=== PATIENT | male | born 1970 | race African-American/Black ===

== ENCOUNTER 2018-06-20 14:14 | Inpatient (IN) | payer MEDICAID ==
[~2018-06-20] VITALS: Ht 172.7 cm; Wt 85.7 kg
[~2018-06-20 14:14] MED LIST: ATOR-2 MT; METF500T6 MT; OMEG-119 MT; ONDA8TAB13 MT
[2018-06-20 16:09] LABS: HEMATOCRIT. 27.2 % (42.0-52.0); HEMOGLOBIN. 8.9 g/dL (14.0-18.0); MEAN CORPUSCULAR HEMOGLOBIN 24.7 pg (28.0-32.0); MEAN CORPUSCULAR VOLUME 75.8 fL (80.0-94.0); MEAN PLATELET VOLUME 8.1 fl (7.4-10.4); PLATELET 885 x1000/uL (130-400); RED BLOOD CELL COUNT 3.59 mill/uL (4.7-6.1); RED CELL DISTRIBUTION WIDTH 16.9 % (11.6-14.6)
[2018-06-20 16:11] LABS: CHLORIDE 101 mEq/L (98-107)
[2018-06-20 16:13] LABS: INR 1.1; PROTHROMBIN TIME 10.7 sec (9.1-11.1)
[2018-06-20 16:21] LABS: PHOSPHORUS 4.4 mg/dL (2.5-4.9)
[2018-06-20] MEDS ORDERED: PIPERACILLIN/TAZ 3.375G PREMIX 50 ML IV SCH (16:30)
[2018-06-20] MEDS ORDERED: METRONIDAZOLE 500 MG PREMIX 100 ML IV NR (16:30)
[2018-06-20] MEDS ORDERED: VANCOMYCIN 1 G PREMIX 200 ML IV SCH ×2 (16:30→22:30)
[2018-06-20] MEDS ORDERED: PIPERACILLIN/TAZOBACTAM 3.375GM/50ML PREMIX IV ONE (16:30)
[2018-06-20 16:32] LABS: PLATELET ESTIMATE INCREASED
[2018-06-20] MEDS ORDERED: SODIUM BICARBONATE IV SCH (17:45)
[2018-06-20] MEDS ORDERED: SODIUM CHLORIDE 0.45% IV SCH (17:45)
[2018-06-20] MEDS ORDERED: SODIUM CHLORIDE 0.9% 500 ML IV ONE (19:00)
[2018-06-20] MEDS ORDERED: LIDOCAINE HCL 1% 10 MG/ML 10ML VIAL ONE (19:26)
[2018-06-20] MEDS ORDERED: SODIUM BICARBONATE 4% (2.4MEQ) 5ML VIAL IV ONE (19:27)
[2018-06-20] MEDS ORDERED: HEPARIN 1000 UNITS/ML 10ML ONE (19:27)
[2018-06-20] MEDS ORDERED: NOREPINEPHRINE 4 MG in DEXT 5% WATER 246 ML IV ONE (19:30)
[2018-06-20] MEDS ORDERED: NOREPINEPHRINE 4 MG in DEXT 5% WATER 246 ML IV NR (20:45)
[2018-06-20 21:35] VITALS: BP 101/60
[2018-06-20 21:44] VITALS: BP 108/60
[2018-06-20 22:00] VITALS: BP 120/72
[2018-06-20 22:15] VITALS: BP 119/80
[2018-06-20 22:30] VITALS: BP 114/76
[2018-06-20] MEDS ORDERED: DIPHENHYDRAMINE 50MG/ML VIAL IV PRN (22:30)
[2018-06-20] MEDS ORDERED: IPRATROPIUM/ALBUTEROL 0.5-3(2.5)MG/3ML NEB INH PRN (22:30)
[2018-06-20] MEDS ORDERED: TEMAZEPAM 15MG CAPSULE PO PRN (22:30)
[2018-06-20] MEDS ORDERED: ONDANSETRON HCL 4MG/2ML INJ IV PRN (22:30)
[2018-06-20 23:00] VITALS: BP 128/62
[2018-06-20] MEDS ORDERED: SODIUM BICARBONATE 100 MEQ in SODIUM CHLORIDE 0.45% 1,000 ML IV SCH (23:00)
[2018-06-20] MEDS ORDERED: SODIUM BICARBONATE 100 MEQ in DEXTROSE 5% WATER 1,000 ML IV SCH (23:30)
[2018-06-20] MEDS: ENOXAPARIN 30MG/0.3ML SYR SUBCUT SCH (23:30)
[2018-06-21] VITALS (46 sets, daily range): BP systolic 85–120; BP diastolic 42–75
[2018-06-21] MEDS: PIPERACILLIN/TAZ 2.25G PREMIX 50 ML IV SCH ×2 (00:59→05:37)
[2018-06-21] MEDS ORDERED: VANCOMYCIN 750 MG PREMIX 150 ML IV NR (01:00)
[2018-06-21] MEDS ORDERED: MAGN400T26 MT (04:55)
[2018-06-21] MEDS ORDERED: VIT1TABL86 MT (04:55)
[2018-06-21] MEDS ORDERED: CELE200C MT (04:55)
[2018-06-21] MEDS ORDERED: FOLI0.4T2 MT (04:55)
[2018-06-21 06:54] LABS: HEMATOCRIT. 24.1 % (42.0-52.0); HEMOGLOBIN. 7.6 g/dL (14.0-18.0); MEAN CORPUSCULAR HEMOGLOBIN 23.9 pg (28.0-32.0); MEAN CORPUSCULAR VOLUME 75.7 fL (80.0-94.0); MEAN PLATELET VOLUME 8.3 fl (7.4-10.4); PLATELET 722 x1000/uL (130-400); RED BLOOD CELL COUNT 3.18 mill/uL (4.7-6.1); RED CELL DISTRIBUTION WIDTH 17.2 % (11.6-14.6)
[2018-06-21 07:02] LABS: PHOSPHORUS 3.8 mg/dL (2.5-4.9)
[2018-06-21] MEDS: DEXT 5%/0.45% NACL 1000ML 1,000 ML IV SCH ×2 (08:16→21:11)
[2018-06-21] MEDS: PANTOPRAZOLE SODIUM 40 MG/VIAL IV SCH (08:16)
[2018-06-21 08:31] LABS: BG BASE EXCESS -11.9 mmol/L (-2.0-2.0); BG CARBOXYHEMOGLOBIN 0.3 % (0.5-1.5); BG DEOXYHEMOGLOBIN 4.6 % (0.0-5.0); BG HCO3 ACT 12.6 mmol/L (22.0-26.0); BG METHEMOGLOBIN 0.1 % (0.0-1.5); BG OXYGEN SATURATION 95.4 % (92.0-98.5); BG PCO2 24.1 mmHg (35.0-45.0); BG PH 7.337 (7.350-7.450); BG PO2 82.2 mmHg (75.0-100.0); BG SAMPLE SITE RIGHT RADIAL; BG TOTAL HEMOGLOBIN 8.3 g/dL (12.0-18.0); BG VENT MODE ROOM AIR
[2018-06-21 11:01] LABS: HEPATITIS B SURFACE ANTIGEN NEGATIVE
[2018-06-21 11:28] LABS: HEPATITIS B CORE AB IGM NEGATIVE
[2018-06-21 11:29] LABS: HEPATITIS A AB IGM NEGATIVE (NEGATIVE)
[2018-06-21] MEDS ORDERED: HEPARIN SODIUM 1,000 UNIT/1ML VIAL IV NR (12:22)
[2018-06-21] MEDS: METRONIDAZOLE 500MG TABLET PO SCH ×2 (13:53→17:40)
[2018-06-21 14:15] LABS: PLATELET ESTIMATE INCREASED
[2018-06-21] MEDS: ENOXAPARIN 30MG/0.3ML SYR SUBCUT SCH (21:11)
[2018-06-21] MEDS: HYDROCODONE/ACETAMINOPHEN 5/325MG TABLET PO PRN (21:11)
[2018-06-22] VITALS (16 sets, daily range): BP systolic 91–116; BP diastolic 42–72
[2018-06-22] MEDS: METRONIDAZOLE 500MG TABLET PO SCH ×3 (00:45→11:29)
[2018-06-22 05:56] LABS: HEMATOCRIT. 28.6 % (42.0-52.0); HEMOGLOBIN. 9.3 g/dL (14.0-18.0); MEAN CORPUSCULAR HEMOGLOBIN 24.6 pg (28.0-32.0); MEAN CORPUSCULAR VOLUME 76.2 fL (80.0-94.0); PLATELET 574 x1000/uL (130-400); RED BLOOD CELL COUNT 3.76 mill/uL (4.7-6.1); RED CELL DISTRIBUTION WIDTH 17.5 % (11.6-14.6)
[2018-06-22] MEDS: HYDROCODONE/ACETAMINOPHEN 5/325MG TABLET PO PRN ×2 (06:18→16:11)
[2018-06-22] MEDS: CEFTAZIDIME PENTAHYDRATE 1 G in DEXTROSE 5% WATER 50 ML IV SCH ×2 (08:13→15:57)
[2018-06-22] MEDS: PANTOPRAZOLE SODIUM 40 MG/VIAL IV SCH (08:14)
[2018-06-22] MEDS: DEXT 5%/0.45% NACL 1000ML 1,000 ML IV SCH ×2 (09:08→21:12)
[2018-06-22] MEDS ORDERED: VANCOMYCIN 1250MG in DEXTROSE 5% WATER 250ML IV NR (10:00)
[2018-06-22 14:16] LABS: PLATELET ESTIMATE INCREASED
[2018-06-22] MEDS: METRONIDAZOLE 250MG TABLET PO SCH (17:45)
[2018-06-22] MEDS ORDERED: METRONIDAZOLE 250MG TABLET PO SCH (18:00)
[2018-06-22] MEDS: ENOXAPARIN 30MG/0.3ML SYR SUBCUT SCH (21:06)
[2018-06-23] VITALS (12 sets, daily range): BP systolic 85–131; BP diastolic 43–75
[2018-06-23] MEDS: HYDROCODONE/ACETAMINOPHEN 5/325MG TABLET PO PRN ×2 (00:14→12:27)
[2018-06-23] MEDS: METRONIDAZOLE 250MG TABLET PO SCH ×3 (00:14→12:37)
[2018-06-23 06:23] LABS: BASOPHILS % 0.2 % (0.0-2.0); EOSINOPHILS % 0.5 % (0.0-5.0); HEMATOCRIT. 26.6 % (42.0-52.0); HEMOGLOBIN. 8.7 g/dL (14.0-18.0); LYMPHOCYTES % 8.1 % (20.0-50.0); MEAN CORPUSCULAR HEMOGLOBIN 25.1 pg (28.0-32.0); MEAN CORPUSCULAR VOLUME 76.7 fL (80.0-94.0); MEAN PLATELET VOLUME 7.8 fl (7.4-10.4); MONOCYTES % 13.4 % (2.0-8.0); NEUTROPHILS % 77.8 % (40.0-76.0); PLATELET 532 x1000/uL (130-400); RED BLOOD CELL COUNT 3.46 mill/uL (4.7-6.1); RED CELL DISTRIBUTION WIDTH 17.7 % (11.6-14.6)
[2018-06-23] MEDS ORDERED: HEPARIN SODIUM 1,000 UNIT/1ML VIAL IV SCH (09:00)
[2018-06-23] MEDS: PANTOPRAZOLE SODIUM 40 MG/VIAL IV SCH (09:00)
[2018-06-23] MEDS: DEXT 5%/0.45% NACL 1000ML 1,000 ML IV SCH (12:42)
[2018-06-23] MEDS: ACETAMINOPHEN 325MG TABLET PO PRN ×2 (14:12→21:30)
[2018-06-23] MEDS: CEFTAZIDIME PENTAHYDRATE 1 G in DEXTROSE 5% WATER 50 ML IV SCH (15:36)
[2018-06-23] MEDS: SODIUM CHLORIDE 0.9% 500 ML IV NR ×2 (16:22→16:32)
[2018-06-23] MEDS: ENOXAPARIN 30MG/0.3ML SYR SUBCUT SCH (21:31)
[2018-06-24] MEDS: DEXT 5%/0.45% NACL 1000ML 1,000 ML IV SCH (02:58)
[2018-06-24 04:00] VITALS: BP 131/68
[2018-06-24 06:00] VITALS: BP 127/64
[2018-06-24 08:00] VITALS: BP 127/65
[2018-06-24] MEDS ORDERED: FAMOTIDINE 20MG TABLET PO SCH (09:00)
[2018-06-24 12:00] VITALS: BP 137/70
[2018-06-24] MEDS: HYDROCODONE/ACETAMINOPHEN 5/325MG TABLET PO PRN (15:50)
[2018-06-24 16:00] VITALS: BP 111/57
[2018-06-24 16:06] VITALS: BP 127/65
== END 2018-06-24 16:45 | disposition home or self-care (01) | DRG 469 ==
LOC: ER 15:46 → MICUSO 18:55 → EDBEDREQTM 18:56 → EDBEDREQ 18:56 → EDBEDREQSVC 18:56 → EDBEDREQTM 19:23 → EDBEDREQSVC 19:23 → ENRESERV 19:59 → 8WST 06-22 11:58
PROVIDERS: ADMIT Internal Medicine; ATTEND Internal Medicine
PROC: 05HM33Z Insertion of Infusion Device into Right Internal Jugular Vein, Percutaneous Approach (ICD-10-PCS; principal; 2018-06-20)
PROC: B543ZZA Ultrasonography of Right Jugular Veins, Guidance (ICD-10-PCS; 2018-06-20)
PROC: 5A1D70Z Performance of Urinary Filtration, Intermittent, Less than 6 Hours Per Day (ICD-10-PCS; 2018-06-21)
PROC: 30233N1 Transfusion of Nonautologous Red Blood Cells into Peripheral Vein, Percutaneous Approach (ICD-10-PCS; 2018-06-21)
PROC: 5A1D70Z Performance of Urinary Filtration, Intermittent, Less than 6 Hours Per Day (ICD-10-PCS; 2018-06-22)
DX: N17.9 Acute kidney failure, unspecified (principal); E43 Unspecified severe protein-calorie malnutrition; E87.2 Acidosis; I95.9 Hypotension, unspecified; E87.1 Hypo-osmolality and hyponatremia; K50.90 Crohn's disease, unspecified, without complications; R65.10 Systemic inflammatory response syndrome (SIRS) of non-infectious origin without acute organ dysfunction; K52.9 Noninfective gastroenteritis and colitis, unspecified; I10 Essential (primary) hypertension; E79.0 Hyperuricemia without signs of inflammatory arthritis and tophaceous disease; T45.1X5A Adverse effect of antineoplastic and immunosuppressive drugs, initial encounter; C64.9 Malignant neoplasm of unspecified kidney, except renal pelvis; D64.9 Anemia, unspecified; E11.9 Type 2 diabetes mellitus without complications; Z79.899 Other long term (current) drug therapy; Z99.2 Dependence on renal dialysis; Z68.28 Body mass index [BMI] 28.0-28.9, adult; Y92.89 Other specified places as the place of occurrence of the external cause
CPT/HCPCS: 36415; 36430; 36556; 36600; 71045; 74176; 76770; 76937; 80048; 80053; 80202; 82375; 82550; 82805; 83605; 83735; 84100; 84550; 85025; 85610; 86705; 86709; 86803; 86850; 86900; 86920; 87040; 87340; 87493; 93005; 93970; 96365; 96366; 96367; 96368; 99291; C1752; C9113; J0713; J1200; J1644; J1650; J2543; J3370; J3490; J7030; J7040; J7050; J7060; J7070; P9016

== ENCOUNTER 2019-05-15 09:41 | Inpatient (IN) | payer MEDICAID, OTHER ==
[~2019-05-15] VITALS: Ht 175.3 cm; Wt 75.7 kg
[~2019-05-15 09:41] MED LIST changes: +CELE200C MT; +FOLI0.4T2 MT; +MAGN400T26 MT; +METF-414 MT; -METF500T6 MT; +VIT1TABL86 MT
[2019-05-15] MEDS ORDERED: SODIUM CHLORIDE 0.9% 1,000 ML IV ONE (09:51)
[2019-05-15 10:40] LABS: CHLORIDE 117 mEq/L (98-107)
[2019-05-15 11:01] LABS: BASOPHILS % 0.4 % (0.0-2.0); EOSINOPHILS % 0.7 % (0.0-5.0); MEAN CORPUSCULAR VOLUME 75.8 fL (80.0-94.0); MEAN PLATELET VOLUME 7.5 fl (7.4-10.4); MONOCYTES % 12.1 % (2.0-8.0); NEUTROPHILS % 70.8 % (40.0-76.0); PLATELET 318 x1000/uL (130-400); RED BLOOD CELL COUNT 2.17 mill/uL (4.7-6.1); RED CELL DISTRIBUTION WIDTH 15.1 % (11.6-14.6)
[2019-05-15 11:10] LABS: INR 1.4; PROTHROMBIN TIME 14.5 sec (9.6-11.0)
[2019-05-15 11:16] LABS: HEMOGLOBIN. 5.2 g/dL (14.0-18.0)
[2019-05-15 11:17] LABS: HEMATOCRIT. 16.5 % (42.0-52.0)
[2019-05-15 12:31] LABS: CHLORIDE 103 mEq/L (98-107)
[2019-05-15] MEDS ORDERED: CALCIUM GLUCONATE 100MG/ML 10ML VIAL IV ONE (12:45)
[2019-05-15] MEDS ORDERED: METHYLPREDNISOLONE SOD SUCC 125 MG/2 ML VIAL IV SCH (13:00)
[2019-05-15] MEDS ORDERED: METHYLPREDNISOLONE SOD SUCC 125 MG/2 ML VIAL IV ONE (13:15)
[2019-05-15] MEDS: SODIUM CHLORIDE 0.9% 1,000 ML IV SCH ×2 (14:03→17:08)
[2019-05-15] MEDS ORDERED: CEFTRIAXONE 1 G PREMIX 50 ML IV SCH (14:15)
[2019-05-15] MEDS ORDERED: AZITHROMYCIN 500 MG TABLET PO NR (14:15)
[2019-05-15] MEDS: PANTOPRAZOLE 40MG DR TABLET PO SCH (14:40)
[2019-05-15 14:51] LABS: HAPTOGLOBIN 408 mg/dL (30-200)
[2019-05-15 15:15] VITALS: BP 113/78
[2019-05-15 15:20] VITALS: BP 113/78
[2019-05-15] MEDS ORDERED: ONDANSETRON HCL 4MG/2ML INJ IV PRN (17:30)
[2019-05-15] MEDS ORDERED: DOCUSATE SODIUM 100MG CAPSULE PO PRN (17:30)
[2019-05-15] MEDS ORDERED: IPRATROPIUM/ALBUTEROL 0.5-3(2.5)MG/3ML NEB INH PRN (17:30)
[2019-05-15] MEDS ORDERED: LORAZEPAM 0.5MG TABLET PO PRN (17:30)
[2019-05-15] MEDS ORDERED: HYDROCODONE/ACETAMINOPHEN 10/325MG TABLET PO PRN (17:30)
[2019-05-15] MEDS ORDERED: ACETAMINOPHEN 325MG TABLET PO PRN (17:30)
[2019-05-15] MEDS ORDERED: CLONIDINE 0.1MG TABLET PO PRN (17:30)
[2019-05-15 19:59] LABS: HEMATOCRIT 25.7 % (42.0-52.0); HEMOGLOBIN 8.2 g/dL (14.0-18.0)
[2019-05-15 20:22] VITALS: BP 103/69
[2019-05-15] MEDS ORDERED: ATORVASTATIN CALCIUM 40MG TABLET PO SCH (21:00)
[2019-05-15] MEDS: MORPHINE SULFATE 2 MG/ML CPJ (NOT FOR IM USE) IV PRN (21:04)
[2019-05-16] VITALS (9 sets, daily range): BP systolic 115–136; BP diastolic 72–87
[2019-05-16] MEDS: SODIUM CHLORIDE 0.9% 1,000 ML IV SCH ×2 (04:06→17:33)
[2019-05-16] MEDS: PANTOPRAZOLE 40MG DR TABLET PO SCH (06:29)
[2019-05-16 07:03] LABS: BASOPHILS % 0.3 % (0.0-2.0); HEMATOCRIT. 23.1 % (42.0-52.0); HEMOGLOBIN. 7.3 g/dL (14.0-18.0); LYMPHOCYTES % 10.1 % (20.0-50.0); MEAN CORPUSCULAR HEMOGLOBIN 23.9 pg (28.0-32.0); MEAN CORPUSCULAR VOLUME 75.1 fL (80.0-94.0); MEAN PLATELET VOLUME 7.7 fl (7.4-10.4); MONOCYTES % 12.7 % (2.0-8.0); NEUTROPHILS % 76.9 % (40.0-76.0); PLATELET 418 x1000/uL (130-400); RED BLOOD CELL COUNT 3.07 mill/uL (4.7-6.1); RED CELL DISTRIBUTION WIDTH 15.5 % (11.6-14.6)
[2019-05-16 07:07] LABS: CHLORIDE 106 mEq/L (98-107)
[2019-05-16] MEDS ORDERED: AZITHROMYCIN 500 MG TABLET PO SCH (09:00)
[2019-05-16] MEDS ORDERED: METHYLPREDNISOLONE SOD SUCC 125 MG/2 ML VIAL IV SCH (09:00)
[2019-05-16] MEDS: MAGNESIUM OXIDE 400MG TABLET PO SCH (09:03)
[2019-05-16] MEDS ORDERED: CEFTRIAXONE 1 G PREMIX 50 ML IV SCH (15:00)
[2019-05-16 15:52] LABS: TOTAL IRON BINDING CAPACITY 105 ug/dL (250-450)
[2019-05-16] MEDS: PREDNISONE 20MG TABLET PO SCH (17:32)
[2019-05-16] MEDS: MORPHINE SULFATE 2 MG/ML CPJ (NOT FOR IM USE) IV PRN (17:33)
[2019-05-16 23:26] LABS: CLARITY URINE CLEAR (CLEAR); COLOR URINE YELLOW (YELLOW); KETONES URINE NEGATIVE (NEGATIVE); LEUKOCYTE ESTERASE URINE NEGATIVE (NEGATIVE); NITRITE URINE NEGATIVE (NEGATIVE); OCCULT BLOOD URINE NEGATIVE (NEGATIVE); PROTEIN URINE 1+ (NEGATIVE); SPECIFIC GRAVITY URINE 1.022 (1.005-1.030)
[2019-05-17] VITALS: BP 130/75
[2019-05-17] MEDS: MORPHINE SULFATE 2 MG/ML CPJ (NOT FOR IM USE) IV PRN (01:41)
[2019-05-17 04:00] VITALS: BP 148/70
[2019-05-17] MEDS: SODIUM CHLORIDE 0.9% 1,000 ML IV SCH ×2 (05:13→15:25)
[2019-05-17] MEDS: PANTOPRAZOLE 40MG DR TABLET PO SCH (06:30)
[2019-05-17 07:15] LABS: CHLORIDE 107 mEq/L (98-107)
[2019-05-17] MEDS: MAGNESIUM OXIDE 400MG TABLET PO SCH (10:17)
[2019-05-17] MEDS: PREDNISONE 20MG TABLET PO SCH (10:18)
[2019-05-17] MEDS ORDERED: P20 PO (10:44)
[2019-05-17 10:48] LABS: BASOPHILS % 0.3 % (0.0-2.0); HEMATOCRIT. 28.2 % (42.0-52.0); HEMOGLOBIN. 9.1 g/dL (14.0-18.0); LYMPHOCYTES % 7.6 % (20.0-50.0); MEAN CORPUSCULAR HEMOGLOBIN 25.1 pg (28.0-32.0); MEAN CORPUSCULAR VOLUME 77.6 fL (80.0-94.0); MEAN PLATELET VOLUME 7.9 fl (7.4-10.4); MONOCYTES % 9.2 % (2.0-8.0); NEUTROPHILS % 82.9 % (40.0-76.0); PLATELET 427 x1000/uL (130-400); RED BLOOD CELL COUNT 3.63 mill/uL (4.7-6.1)
[2019-05-17 11:55] LABS: HEMATOCRIT 26.1 % (42.0-52.0); HEMOGLOBIN 8.3 g/dL (14.0-18.0); MEAN CORPUSCULAR HEMOGLOBIN 24.7 pg (28.0-32.0); MEAN CORPUSCULAR VOLUME 77.7 fL (80.0-94.0); PLATELET 403 x1000/uL (130-400); RED BLOOD CELL COUNT 3.35 mill/uL (4.7-6.1)
[2019-05-17] MEDS ORDERED: SODIUM POLYSTYRENE SULFONATE 15 G/60 ML BOT PO NR (13:30)
[2019-05-17 18:47] VITALS: BP 134/86
[2019-05-18] MEDS ORDERED: PREDNISONE 20MG TABLET PO SCH (09:00)
== END 2019-05-17 19:55 | disposition home or self-care (01) | DRG 48 ==
LOC: ER 09:41 → 6WST 11:59 → ENRESERV 14:05
PROVIDERS: ADMIT Internal Medicine; ATTEND Internal Medicine
PROC: 30233N1 Transfusion of Nonautologous Red Blood Cells into Peripheral Vein, Percutaneous Approach (ICD-10-PCS; principal; 2019-05-15)
DX: G90.8 Other disorders of autonomic nervous system (principal); E43 Unspecified severe protein-calorie malnutrition; J91.0 Malignant pleural effusion; D68.9 Coagulation defect, unspecified; E83.51 Hypocalcemia; E87.1 Hypo-osmolality and hyponatremia; E87.2 Acidosis; D50.9 Iron deficiency anemia, unspecified; I95.9 Hypotension, unspecified; E11.9 Type 2 diabetes mellitus without complications; C67.9 Malignant neoplasm of bladder, unspecified; E87.5 Hyperkalemia; D72.821 Monocytosis (symptomatic); E78.5 Hyperlipidemia, unspecified; C64.9 Malignant neoplasm of unspecified kidney, except renal pelvis; E87.6 Hypokalemia; I11.9 Hypertensive heart disease without heart failure; D47.3 Essential (hemorrhagic) thrombocythemia; Z85.528 Personal history of other malignant neoplasm of kidney; Z79.899 Other long term (current) drug therapy; Z68.24 Body mass index [BMI] 24.0-24.9, adult
CPT/HCPCS: 36415; 71045; 80048; 80061; 81003; 82728; 83010; 83540; 83550; 83605; 83615; 83880; 84132; 84145; 84484; 85014; 85018; 85027; 86850; 86880; 86900; 86920; 93005; 93306; 96365; 96375; 99291; J0610; J0696; J2270; J2930; J7030; J7512; P9021

== ENCOUNTER 2019-07-12 18:24 | Emergency (ER) | payer OTHER ==
[~2019-07-12] VITALS: Ht 177.8 cm; Wt 68.0 kg
[~2019-07-12 18:24] MED LIST changes: -CELE200C MT; +P20 PO
[2019-07-12] MEDS ORDERED: SODIUM CHLORIDE 0.9% 1000ML BAG (SEPSIS BOLUS) IV ONE (19:30)
[2019-07-12 20:38] LABS: CLARITY URINE CLEAR (CLEAR); COLOR URINE DARK YELLOW (YELLOW); KETONES URINE TRACE (NEGATIVE); LEUKOCYTE ESTERASE URINE TRACE (NEGATIVE); NITRITE URINE NEGATIVE (NEGATIVE); OCCULT BLOOD URINE NEGATIVE (NEGATIVE); PH URINE 5.5 (4.5-8.0); PROTEIN URINE 2+ (NEGATIVE); SPECIFIC GRAVITY URINE 1.021 (1.005-1.030)
[2019-07-12 20:59] LABS: HEMATOCRIT. 25.5 % (42.0-52.0); HEMOGLOBIN. 7.8 g/dL (14.0-18.0); MEAN CORPUSCULAR HEMOGLOBIN 23.4 pg (28.0-32.0); MEAN CORPUSCULAR VOLUME 76.4 fL (80.0-94.0); MEAN PLATELET VOLUME 9.2 fl (7.4-10.4); PLATELET 159 x1000/uL (130-400); RED BLOOD CELL COUNT 3.33 mill/uL (4.7-6.1); RED CELL DISTRIBUTION WIDTH 18.5 % (11.6-14.6)
[2019-07-12 21:00] LABS: CHLORIDE 102 mEq/L (98-107); INR 1.3; PROTHROMBIN TIME 13.4 sec (9.6-11.0)
[2019-07-12] MEDS ORDERED: VANCOMYCIN 1 G PREMIX 200 ML IV SCH (21:15)
[2019-07-12] MEDS ORDERED: PIPERACILLIN/TAZ 3.375G PREMIX 50 ML IV SCH (21:15)
[2019-07-12] MEDS: HYDROMORPHONE HCL/PF 2MG/ML CPJ IV NR ×2 (21:47→22:02)
[2019-07-12 22:14] LABS: PLATELET ESTIMATE NORMAL
[2019-07-13 01:00] VITALS: BP 118/71
== END 2019-07-13 02:23 | disposition home or self-care (01) ==
LOC: ER 18:24 → CANBEDREQ 07-13 03:40
DX: D64.9 Anemia, unspecified (principal); A41.9 Sepsis, unspecified organism; R65.20 Severe sepsis without septic shock; J90 Pleural effusion, not elsewhere classified; C23 Malignant neoplasm of gallbladder; C79.89 Secondary malignant neoplasm of other specified sites; Z85.89 Personal history of malignant neoplasm of other organs and systems
CPT/HCPCS: 36415; 71045; 80053; 81003; 83605; 84145; 84484; 85025; 85610; 86850; 86900; 86901; 86920; 87040; 87086; 93005; 96365; 96375; 99291; J1170; J2543; J3370; J7030

== ENCOUNTER 2019-07-28 14:53 | Inpatient (IN) | payer OTHER ==
[~2019-07-28] VITALS: Ht 177.8 cm; Wt 77.1 kg
[2019-07-28] MEDS ORDERED: SODIUM CHLORIDE 0.9% 1,000 ML IV ONE ×2 (15:45→17:15)
[2019-07-28 16:46] LABS: CHLORIDE 101 mEq/L (98-107)
[2019-07-28 17:12] LABS: HEMATOCRIT. 22.6 % (42.0-52.0); HEMOGLOBIN. 7.2 g/dL (14.0-18.0); MEAN CORPUSCULAR HEMOGLOBIN 25.1 pg (28.0-32.0); MEAN CORPUSCULAR VOLUME 79.5 fL (80.0-94.0); MEAN PLATELET VOLUME 10.1 fl (7.4-10.4); PLATELET 95 x1000/uL (130-400); RED BLOOD CELL COUNT 2.85 mill/uL (4.7-6.1); RED CELL DISTRIBUTION WIDTH 18.8 % (11.6-14.6)
[2019-07-28] MEDS ORDERED: DEXTROSE 50% WATER 50ML SYRINGE IV ONE (17:15)
[2019-07-28] MEDS ORDERED: SODIUM POLYSTYRENE SULFONATE 15 G/60 ML BOT PO ONE (17:15)
[2019-07-28] MEDS ORDERED: INSULIN REGULAR (HUMULIN R) 300UNITS/3ML IV ONE (17:15)
[2019-07-28] MEDS ORDERED: SODIUM BICARBONATE 8.4% 1 MEQ/ML 50ML SYR IV ONE (17:30)
[2019-07-28 17:33] LABS: PLATELET ESTIMATE DECREASED
[2019-07-28] MEDS ORDERED: DIGOXIN 500MCG/2ML AMP IV NR (17:45)
[2019-07-28] MEDS ORDERED: ACETAMINOPHEN 325MG TABLET PO PRN (17:45)
[2019-07-28] MEDS ORDERED: ONDANSETRON HCL 4MG/2ML INJ IV PRN (17:45)
[2019-07-28 19:37] LABS: CLARITY URINE CLOUDY (CLEAR); COLOR URINE DARK YELLOW (YELLOW); KETONES URINE TRACE (NEGATIVE); LEUKOCYTE ESTERASE URINE NEGATIVE (NEGATIVE); NITRITE URINE NEGATIVE (NEGATIVE); OCCULT BLOOD URINE NEGATIVE (NEGATIVE); PROTEIN URINE 1+ (NEGATIVE); SPECIFIC GRAVITY URINE 1.018 (1.005-1.030)
[2019-07-28] MEDS ORDERED: MIDAZOLAM HCL 2 MG/2 ML VIAL IV ONE (22:15)
[2019-07-28] MEDS ORDERED: ADENOSINE 3 MG/ML 2ML VIAL IV ONE ×2 (22:20→22:26)
[2019-07-29] VITALS (11 sets, daily range): BP systolic 96–122; BP diastolic 59–79
[2019-07-29] MEDS ORDERED: ONDANSETRON 4MG ODT PO PRN (04:15)
[2019-07-29] MEDS ORDERED: NON FORMULARY PATIENT HOME MED XX SCH (04:15)
[2019-07-29] MEDS: SODIUM CHLORIDE 0.9% 1,000 ML IV SCH ×2 (04:45→14:36)
[2019-07-29] MEDS ORDERED: BACLOFEN 10MG TABLET PO PRN (04:45)
[2019-07-29] MEDS ORDERED: HYDROMORPHONE HCL 2MG TABLET PO PRN (05:00)
[2019-07-29] MEDS: CEFTRIAXONE 1 G PREMIX 50 ML IV SCH (05:00)
[2019-07-29] MEDS: MORPHINE SULFATE 15MG TABLET SR PO SCH ×3 (05:21→23:00)
[2019-07-29] MEDS ORDERED: HYDROMORPHONE HCL 4MG TABLET PO PRN (06:00)
[2019-07-29] MEDS ORDERED: CHOL500063 PO (06:05)
[2019-07-29] MEDS ORDERED: PENT400T16 PO (06:05)
[2019-07-29] MEDS ORDERED: DIVA-75 PO (06:05)
[2019-07-29] MEDS ORDERED: HYDR4TAB56 PO (06:05)
[2019-07-29] MEDS ORDERED: FOLI0.8C PO (06:05)
[2019-07-29] MEDS ORDERED: MORP30TA54 PO (06:05)
[2019-07-29] MEDS ORDERED: FAMO40TA7 PO (06:05)
[2019-07-29] MEDS ORDERED: ESCI10TA PO (06:05)
[2019-07-29] MEDS ORDERED: BACL-141 PO (06:05)
[2019-07-29] MEDS ORDERED: METH4TAB PO (06:05)
[2019-07-29 06:54] LABS: BASOPHILS % 1.7 % (0.0-2.0); EOSINOPHILS % 0.1 % (0.0-5.0); HEMATOCRIT. 22.4 % (42.0-52.0); MEAN CORPUSCULAR HEMOGLOBIN 25.2 pg (28.0-32.0); MEAN CORPUSCULAR VOLUME 80.4 fL (80.0-94.0); MEAN PLATELET VOLUME 9.4 fl (7.4-10.4); NEUTROPHILS % 67.2 % (40.0-76.0); PLATELET 84 x1000/uL (130-400); RED BLOOD CELL COUNT 2.78 mill/uL (4.7-6.1); RED CELL DISTRIBUTION WIDTH 19.3 % (11.6-14.6)
[2019-07-29 07:29] LABS: CHLORIDE 105 mEq/L (98-107)
[2019-07-29] MEDS: CITALOPRAM HYDROBROMIDE 10MG TABLET PO SCH (09:39)
[2019-07-29] MEDS: FAMOTIDINE 20MG TABLET PO SCH (09:40)
[2019-07-29] MEDS: METHYLPREDNISOLONE 4MG TABLET PO SCH ×2 (09:40→17:18)
[2019-07-29] MEDS: AZITHROMYCIN 500 MG TABLET PO SCH (09:40)
[2019-07-29] MEDS: PENTOXIFYLLINE 400MG TABLET PO SCH ×2 (09:40→17:20)
[2019-07-29] MEDS ORDERED: HYDROMORPHONE HCL/PF 2MG/ML CPJ IV PRN (10:15)
[2019-07-29] MEDS: GUAIFENESIN 600MG ER TABLET PO SCH ×2 (11:39→20:42)
[2019-07-29] MEDS: DILTIAZEM HCL 30MG TABLET PO SCH ×2 (11:40→17:17)
[2019-07-29] MEDS ORDERED: PNEUMOCOCCAL 23-VAL P-SAC VAC 0.5 ML IM ONE (12:00)
[2019-07-29] MEDS: IPRATROPIUM BROMIDE (0.02%) 0.5MG/2.5ML NEB HHN SCH ×2 (14:38→21:37)
[2019-07-29] MEDS ORDERED: GUAIFENESIN 600MG ER TABLET PO SCH (16:00)
[2019-07-29] MEDS: ALLOPURINOL 100 MG TABLET PO SCH (17:17)
[2019-07-29] MEDS: DIGOXIN 500MCG/2ML AMP IV SCH (17:18)
[2019-07-29] MEDS: DIVALPROEX SODIUM 250MG ER TABLET PO SCH (20:43)
[2019-07-30] VITALS (12 sets, daily range): BP systolic 110–165; BP diastolic 68–97
[2019-07-30] MEDS: DILTIAZEM HCL 30MG TABLET PO SCH ×3 (02:00→18:25)
[2019-07-30] MEDS: IPRATROPIUM BROMIDE (0.02%) 0.5MG/2.5ML NEB HHN SCH ×4 (02:15→21:18)
[2019-07-30] MEDS: SODIUM CHLORIDE 0.9% 1,000 ML IV SCH ×2 (03:38→18:23)
[2019-07-30] MEDS: CEFTRIAXONE 1 G PREMIX 50 ML IV SCH (04:49)
[2019-07-30] MEDS: MORPHINE SULFATE 15MG TABLET SR PO SCH ×3 (06:54→23:16)
[2019-07-30 07:43] LABS: HEMATOCRIT. 25.4 % (42.0-52.0); HEMOGLOBIN. 8.3 g/dL (14.0-18.0); MEAN CORPUSCULAR HEMOGLOBIN 26.4 pg (28.0-32.0); MEAN CORPUSCULAR VOLUME 80.8 fL (80.0-94.0); MEAN PLATELET VOLUME 9.6 fl (7.4-10.4); PLATELET 81 x1000/uL (130-400); RED BLOOD CELL COUNT 3.15 mill/uL (4.7-6.1); RED CELL DISTRIBUTION WIDTH 18.5 % (11.6-14.6)
[2019-07-30 07:50] LABS: CHLORIDE 105 mEq/L (98-107)
[2019-07-30] MEDS: ALLOPURINOL 100 MG TABLET PO SCH (08:41)
[2019-07-30] MEDS: CITALOPRAM HYDROBROMIDE 10MG TABLET PO SCH (08:41)
[2019-07-30] MEDS: FAMOTIDINE 20MG TABLET PO SCH (08:41)
[2019-07-30] MEDS: AZITHROMYCIN 500 MG TABLET PO SCH (08:42)
[2019-07-30] MEDS: PENTOXIFYLLINE 400MG TABLET PO SCH ×2 (08:42→18:22)
[2019-07-30] MEDS ORDERED: FUROSEMIDE 20MG TABLET PO ONE (09:00)
[2019-07-30] MEDS: METHYLPREDNISOLONE 4MG TABLET PO SCH ×2 (09:00→17:00)
[2019-07-30] MEDS: GUAIFENESIN 600MG ER TABLET PO SCH ×2 (10:18→21:46)
[2019-07-30 16:37] LABS: PLATELET ESTIMATE DECREASED
[2019-07-30] MEDS: DIGOXIN 500MCG/2ML AMP IV SCH (18:25)
[2019-07-30] MEDS: DIVALPROEX SODIUM 250MG ER TABLET PO SCH (21:46)
[2019-07-31] VITALS (10 sets, daily range): BP systolic 112–133; BP diastolic 69–92
[2019-07-31] MEDS: IPRATROPIUM BROMIDE (0.02%) 0.5MG/2.5ML NEB HHN SCH ×3 (01:02→14:35)
[2019-07-31] MEDS: DILTIAZEM HCL 30MG TABLET PO SCH ×3 (02:04→17:42)
[2019-07-31] MEDS: CEFTRIAXONE 1 G PREMIX 50 ML IV SCH (02:25)
[2019-07-31] MEDS: SODIUM CHLORIDE 0.9% 1,000 ML IV SCH (06:22)
[2019-07-31] MEDS: MORPHINE SULFATE 15MG TABLET SR PO SCH ×2 (06:52→14:00)
[2019-07-31 06:56] LABS: HEMATOCRIT. 27.7 % (42.0-52.0); HEMOGLOBIN. 8.9 g/dL (14.0-18.0); MEAN CORPUSCULAR HEMOGLOBIN 26.5 pg (28.0-32.0); MEAN CORPUSCULAR VOLUME 82.8 fL (80.0-94.0); RED BLOOD CELL COUNT 3.34 mill/uL (4.7-6.1); RED CELL DISTRIBUTION WIDTH 18.9 % (11.6-14.6)
[2019-07-31 07:40] LABS: CHLORIDE 104 mEq/L (98-107)
[2019-07-31] MEDS: ALLOPURINOL 100 MG TABLET PO SCH (08:36)
[2019-07-31] MEDS: FAMOTIDINE 20MG TABLET PO SCH (08:36)
[2019-07-31] MEDS: GUAIFENESIN 600MG ER TABLET PO SCH (08:37)
[2019-07-31] MEDS: METHYLPREDNISOLONE 4MG TABLET PO SCH ×2 (08:37→17:42)
[2019-07-31] MEDS: AZITHROMYCIN 500 MG TABLET PO SCH (08:37)
[2019-07-31] MEDS: CITALOPRAM HYDROBROMIDE 10MG TABLET PO SCH (08:37)
[2019-07-31] MEDS: PENTOXIFYLLINE 400MG TABLET PO SCH ×2 (08:37→17:42)
[2019-07-31 11:23] LABS: NUCLEATED RED BLOOD CELLS 1 /100 WBC
[2019-07-31 11:42] LABS: MEAN PLATELET VOLUME 9.9 fl (7.4-10.4); PLATELET ESTIMATE DECREASED
[2019-07-31 11:43] LABS: PLATELET 79 x1000/uL (130-400)
[2019-07-31] MEDS ORDERED: DILT30TA38 PO (12:32)
[2019-07-31] MEDS ORDERED: ALLO100T PO (12:32)
[2019-07-31] MEDS: DIGOXIN 500MCG/2ML AMP IV SCH (17:42)
== END 2019-07-31 18:38 | disposition home health service (06) | DRG 720 ==
LOC: ER 14:53 → 3WST 16:50 → ENRESERV 22:58
PROVIDERS: ADMIT Internal Medicine; ATTEND Internal Medicine
PROC: 02HV33Z Insertion of Infusion Device into Superior Vena Cava, Percutaneous Approach (ICD-10-PCS; principal; 2019-07-29)
PROC: B548ZZA Ultrasonography of Superior Vena Cava, Guidance (ICD-10-PCS; 2019-07-29)
PROC: 30233N1 Transfusion of Nonautologous Red Blood Cells into Peripheral Vein, Percutaneous Approach (ICD-10-PCS; 2019-07-29)
DX: A41.9 Sepsis, unspecified organism (principal); J96.00 Acute respiratory failure, unspecified whether with hypoxia or hypercapnia; E43 Unspecified severe protein-calorie malnutrition; J90 Pleural effusion, not elsewhere classified; J18.9 Pneumonia, unspecified organism; C78.7 Secondary malignant neoplasm of liver and intrahepatic bile duct; E83.51 Hypocalcemia; L89.153 Pressure ulcer of sacral region, stage 3; T17.890A Other foreign object in other parts of respiratory tract causing asphyxiation, initial encounter; I47.1 Supraventricular tachycardia; D69.6 Thrombocytopenia, unspecified; I48.92 Unspecified atrial flutter; I95.9 Hypotension, unspecified; E87.5 Hyperkalemia; E86.0 Dehydration; D64.9 Anemia, unspecified; C67.9 Malignant neoplasm of bladder, unspecified; C79.51 Secondary malignant neoplasm of bone; N39.0 Urinary tract infection, site not specified; M10.9 Gout, unspecified; E87.1 Hypo-osmolality and hyponatremia; E87.70 Fluid overload, unspecified; I10 Essential (primary) hypertension; J98.19 Other pulmonary collapse; X58.XXXA Exposure to other specified factors, initial encounter; Y93.89 Activity, other specified; Y92.89 Other specified places as the place of occurrence of the external cause; Y99.8 Other external cause status; Z79.84 Long term (current) use of oral hypoglycemic drugs; Z79.899 Other long term (current) drug therapy; Z68.24 Body mass index [BMI] 24.0-24.9, adult
CPT/HCPCS: 36415; 71045; 71250; 76937; 78582; 80048; 81003; 83605; 83880; 84132; 84134; 84484; 84550; 85379; 86850; 86900; 86920; 93005; 93306; 93970; 94640; 94667; 96361; 96374; 96375; 97162; 99291; A9558; C1725; J0153; J0696; J1160; J1170; J1815; J2250; J2405; J3490; J7030; J7509; P9016

== ENCOUNTER 2019-08-03 06:18 | Emergency (ER) | payer OTHER ==
[~2019-08-03] VITALS: Ht 172.7 cm; Wt 53.0 kg
[~2019-08-03 06:18] MED LIST changes: +ALLO100T PO; +BACL-141 PO; +CHOL500063 PO; +DILT30TA38 PO; +DIVA-75 PO; +ESCI10TA PO; +FAMO40TA7 PO; -FOLI0.4T2 MT; +FOLI0.8C PO; +HYDR4TAB56 PO; -MAGN400T26 MT; -METF-414 MT; +METH4TAB PO; +MORP30TA54 PO; +PENT400T16 PO
[2019-08-03] MEDS ORDERED: SODIUM CHLORIDE 0.9% 1,000 ML IV ONE (07:25)
[2019-08-03 08:30] LABS: CLARITY URINE CLEAR (CLEAR); COLOR URINE YELLOW (YELLOW); KETONES URINE 1+ (NEGATIVE); LEUKOCYTE ESTERASE URINE NEGATIVE (NEGATIVE); NITRITE URINE NEGATIVE (NEGATIVE); OCCULT BLOOD URINE NEGATIVE (NEGATIVE); PH URINE 5.5 (4.5-8.0); PROTEIN URINE 1+ (NEGATIVE); SPECIFIC GRAVITY URINE 1.015 (1.005-1.030)
[2019-08-03 09:00] LABS: HEMATOCRIT. 22.3 % (42.0-52.0); HEMOGLOBIN. 7.2 g/dL (14.0-18.0); MEAN CORPUSCULAR HEMOGLOBIN 26.4 pg (28.0-32.0); MEAN CORPUSCULAR VOLUME 81.7 fL (80.0-94.0); MEAN PLATELET VOLUME 9.2 fl (7.4-10.4); PLATELET 109 x1000/uL (130-400); RED BLOOD CELL COUNT 2.73 mill/uL (4.7-6.1); RED CELL DISTRIBUTION WIDTH 19.4 % (11.6-14.6)
[2019-08-03 09:06] LABS: CHLORIDE 104 mEq/L (98-107)
[2019-08-03 09:16] LABS: CREATINE KINASE 72 IU/L (39-308)
[2019-08-03 10:08] LABS: PLATELET ESTIMATE DECREASED
[2019-08-03] MEDS ORDERED: CALCIUM GLUCONATE 1,000 MG in DEXTROSE 5% WATER 50 ML IV ONE (11:15)
[2019-08-03] MEDS ORDERED: BACITRACIN 15GM TUBE TOP ONE (12:00)
[2019-08-03 13:18] VITALS: BP 115/76
== END 2019-08-03 13:24 | disposition home or self-care (01) ==
LOC: ER 06:18
DX: E16.2 Hypoglycemia, unspecified (principal); R53.1 Weakness; C67.9 Malignant neoplasm of bladder, unspecified; C78.7 Secondary malignant neoplasm of liver and intrahepatic bile duct; C78.00 Secondary malignant neoplasm of unspecified lung; Z92.21 Personal history of antineoplastic chemotherapy
CPT/HCPCS: 36415; 71045; 72141; 72146; 72148; 80053; 81003; 82550; 84484; 85025; 93005; 96361; 96365; 99284; J0610; J7030; J7060; Z7610